=== PATIENT | male | born 1960 | race Caucasian/White ===

== ENCOUNTER 2018-01-21 15:34 | Emergency (ER) | payer SELFPAY ==
[~2018-01-21] VITALS: Ht 182.9 cm; Wt 70.0 kg
[~2018-01-21 15:34] MED LIST: CLON.1T PO; ZYRT10TA12 PO
[2018-01-21 15:56] VITALS: BP 195/111; PULSE 121; RESP 17; TEMP 97.5; O2SAT 96
[2018-01-21 16:07] VITALS: BP 171/100; PULSE 122; RESP 18; O2SAT 95
--- NOTE | 2018-01-21 16:12 | PD ---
HPI Chief Complaint: Seizure Time Seen by Provider: 15:55 Travel History International Travel<30 days: No Contact w/Intl Traveler<30days: No Traveled to known affect area: No History of Present Illness HPI 57-year-old male presents to the emergency department via EMS for evaluation after he had a seizure. 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 According to EMS, the customer thought it was strange because he was going 5 miles an hour to 35 mile per hour zone. When the customer came out of [facility], he was having a tonic-clonic seizure. When EMS arrived, he was postictal. The patient has no history of seizures. He reports no chronic medical problems and takes no prescribed medications. At this time, he is alert and oriented to person, place, time. He has no medical complaints. Denies any headache or visual changes. No chest pain or shortness breath. No abdominal pain. No nausea, vomiting, diarrhea. He states that he drinks 2 beers daily, last drink yesterday. He denies any history of alcohol withdrawal. Patient did have incontinence of his bowels as he has stool in his pants. He denies any tongue biting. He has no complaints at this time. Moderate severity. PFSH Past Medical History Medical History: Denies Significant Hx Diminished Hearing: No Tetanus Vaccination: > 5 Years ?: Not Past Surgical History Surgical History: No Previous Surgery Social History Alcohol Use: Yes Tobacco Use: Yes (1 PPD) Substance Use: No Allergies-Medications (Allergen,Severity, Reaction): Coded Allergies: No Known Allergies (Unverified , 09/20/15) Reported Meds & Prescriptions Reported Meds & Active Scripts Active Zyrtec (Cetirizine HCl) 10 Mg Tab 1 Tab PO DAILY [id number] (Clonidine HCl) 0.1 Mg/24 Hr Patch 1 Tab PO BID Review of Systems Except as stated in HPI: all other systems reviewed are Neg Physical Exam Narrative GENERAL: Well-nourished, well-developed male patient, afebrile. Patient alert and oriented to person, place, time. SKIN: Focused skin assessment warm/dry. No lacerations or abrasions. HEAD: Normocephalic. Atraumatic. ENT: Mucosa pink and moist. No erythema or exudates. No uvular edema. No uvular , palatal, or tonsillar deviation. Airway patent. Nasal turbinates appear normal without nasal blood, purulent drainage or septal hematoma. Bilateral tympanic membranes are clear without erythema or perforation. EYES: No scleral icterus. No injection or drainage. NECK: Supple, trachea midline. No JVD or lymphadenopathy. CARDIOVASCULAR: Regular rate and rhythm without murmurs, gallops, or rubs. Bilateral radial and pedal pulses 2+. RESPIRATORY: Breath sounds equal bilaterally. No accessory muscle use. Lungs sounds are clear to auscultation. GASTROINTESTINAL: Abdomen soft, non-tender, nondistended. MUSCULOSKELETAL: No cyanosis, or edema. BACK: Nontender without obvious deformity. No CVA tenderness. NEUROLOGICAL: Awake and alert. Cranial nerves II through XII intact. Motor and sensory grossly within normal limits. Five out of 5 muscle strength in all muscle groups. Normal speech. Finger to nose is normal bilaterally. Heel-to- quinones is normal bilaterally Data Data Last Documented VS Vital Signs Date Time Temp Pulse Resp B/P (MAP) Pulse Ox O2 Delivery O2 Flow Rate FiO2 01/21/18 18:48 01/21/18 16:23 116 24 95 Room Air 01/21/18 15:56 97.5 Orders Orders Complete Blood Count With Diff (01/21/18 16:03) Alcohol (Ethanol) (01/21/18 16:03) Drug Screen, Random Urine (01/21/18 16:03) Electrocardiogram (01/21/18 ) Ct Brain W/O Iv Contrast(Rout) (01/21/18 ) Blood Glucose (01/21/18 16:03) Ecg Monitoring (01/21/18 16:03) Iv Access Insert/Monitor (01/21/18 16:03) Oximetry (01/21/18 16:03) Comprehensive Metabolic Panel (01/21/18 16:03) Sodium Chloride 0.9% Flush (Ns Flush) (01/21/18 16:15) Urinalysis - C+S If Indicated (01/21/18 16:03) Magnesium (Mg) (01/21/18 16:03) Sodium Chlor 0.9% 1000 Ml Inj (Ns 1000 M (01/21/18 16:15) Lorazepam (Ativan) (01/21/18 16:15) Labs Laboratory Tests Test 01/21/18 16:00 White Blood Count 7.6 TH/MM3 Red Blood Count 5.00 MIL/MM3 Hemoglobin 17.1 GM/DL Hematocrit 49.3 % Mean Corpuscular Volume 98.8 FL Mean Corpuscular Hemoglobin 34.2 PG Mean Corpuscular Hemoglobin Concent 34.7 % Red Cell Distribution Width 13.5 % Platelet Count 264 TH/MM3 Mean Platelet Volume 6.6 FL Neutrophils (%) (Auto) 67.0 % Lymphocytes (%) (Auto) 24.4 % Monocytes (%) (Auto) 7.2 % Eosinophils (%) (Auto) 0.8 % Basophils (%) (Auto) 0.6 % Neutrophils # (Auto) 5.1 TH/MM3 Lymphocytes # (Auto) 1.8 TH/MM3 Monocytes # (Auto) 0.5 TH/MM3 Eosinophils # (Auto) 0.1 TH/MM3 Basophils # (Auto) 0.0 TH/MM3 CBC Comment DIFF FINAL Differential Comment Urine Color YELLOW Urine Turbidity CLEAR Urine pH 6.5 Urine Specific [place] 1.026 Urine Protein 100 mg/dL Urine Glucose (UA) 1000 mg/dL Urine Ketones 10 mg/dL Urine Occult Blood NEG Urine Nitrite NEG Urine Bilirubin NEG Urine Urobilinogen LESS THAN 2.0 MG/DL Urine Leukocyte Esterase NEG Urine WBC 1 /hpf Urine Mucus FEW /lpf Microscopic Urinalysis Comment CULT NOT INDICATED Blood Urea Nitrogen 9 MG/DL Creatinine 1.24 MG/DL Random Glucose 213 MG/DL Total Protein 8.0 GM/DL Albumin 3.6 GM/DL Calcium Level 8.7 MG/DL Magnesium Level 1.8 MG/DL Alkaline Phosphatase 48 U/L Aspartate Amino Transf (AST/SGOT) 29 U/L Alanine Aminotransferase (ALT/SGPT) 18 U/L Total Bilirubin 0.7 MG/DL Sodium Level 139 MEQ/L Potassium Level 3.6 MEQ/L Chloride Level 104 MEQ/L Carbon Dioxide Level 20.9 MEQ/L Anion Gap 14 MEQ/L Estimat Glomerular Filtration Rate 60 ML/MIN Urine Opiates Screen NEG Urine Barbiturates Screen NEG Urine Amphetamines Screen NEG Urine Benzodiazepines Screen NEG Urine Cocaine Screen NEG Urine Cannabinoids Screen POS Ethyl Alcohol Level LESS THAN 3 MG/DL MDM Medical Decision Making Medical Screen Exam Complete: Yes Emergency Medical Condition: Yes Medical Record Reviewed: Yes Differential Diagnosis Electrolyte abnormality versus intracranial abnormality versus alcohol withdrawal versus new onset seizure disorder Narrative Course 57-year-old male presents to the emergency department after having a seizure without history. EKG, CBC, CMP, magnesium, UA, urine drug screen, alcohol level are ordered and pending. CT of the brain is ordered and pending. Patient is given normal saline 1 L IV bolus, Ativan 1 mg by mouth. EKG shows sinus tachycardia, heart rate 107, no acute ST changes. CBC shows no acute abnormality. CMP shows hyperglycemia at 213. Magnesium is 1.8. UA is negative for acute infection. UDS is positive for cannabinoids. Alcohol level is less than 3. CT of the brain shows no acute disease. Patient declines admission. He is instructed to not drive and follow-up with neurology. He is leaving AMA. He is aware of the risks of leaving AMA AMA: The risks of leaving against medical advice without further evaluation treatment were discussed with the patient. These risks include cardiac dysfunction, cardiac dysrhythmia, possible heart attack, possible stroke or . The patient indicated understanding of these risks and appeared to have the capacity to make this decision. Diagnosis Primary Impression: Left against medical advice Referrals: Neurologist call for appointment Patient Instructions: General Instructions, Generalized Tonic Clonic Seizures ( ED) Additional Instructions: No driving until neurology clears you. Follow up with neurologist. Return to the emergency department for any acute, worsening of symptoms. Med/Other Pt SpecificInfo: No Change to Meds Disposition: 07 AGAINST MEDICAL ADVICE Diana Darden Jan 21, 2018 16:12
[2018-01-21] MEDS ORDERED: SODIUM CHLORIDE 0.9% FLUSH 10 ML FLUSH IVF PRN (16:15)
[2018-01-21] MEDS ORDERED: SODIUM CHLOR 0.9% 1000 ML INJ 1,000 ML IV ONE (16:15)
[2018-01-21] MEDS ORDERED: LORazepam 1 MG TAB PO ONE (16:15)
[2018-01-21 16:23] VITALS: BP 169/90; PULSE 116; RESP 24; O2SAT 95
[2018-01-21 16:23] LABS: AUTOMATED NEUTROPHIL # 5.1 TH/MM3 (1.8-7.7); BASOPHIL % 0.6 % (0.0-2.0); EOSINOPHIL # 0.1 TH/MM3 (0-0.4); EOSINOPHIL % 0.8 % (0.0-4.0); HEMATOCRIT 49.3 % (39.0-51.0); HEMOGLOBIN 17.1 GM/DL (13.0-17.0); LYMPH % 24.4 % (9.0-44.0); LYMPHOCYTE # 1.8 TH/MM3 (1.0-4.8); MEAN CELL VOLUME 98.8 FL (80.0-100.0); MEAN CORPUSCULAR HEMOGLOBIN 34.2 PG (27.0-34.0); MEAN CORPUSCULAR HGB CONC 34.7 % (32.0-36.0); MEAN PLATELET VOLUME 6.6 FL (7.0-11.0); MONO % 7.2 % (0.0-8.0); MONOCYTE # 0.5 TH/MM3 (0-0.9); PLATELET COUNT 264 TH/MM3 (150-450); RED CELL DISTRIBUTION WIDTH 13.5 % (11.6-17.2); WHITE BLOOD COUNT 7.6 TH/MM3 (4.0-11.0)
[2018-01-21 16:44] LABS: ALBUMIN 3.6 GM/DL (3.4-5.0); AST (GOT) 29 U/L (15-37); BICARBONATE 20.9 MEQ/L (21.0-32.0); BLOOD UREA NITROGEN 9 MG/DL (7-18); CALCIUM 8.7 MG/DL (8.5-10.1); CHLORIDE 104 MEQ/L (98-107); CREATININE 1.24 MG/DL (0.60-1.30); GLOMERULAR FILTRATION RATE 60 ML/MIN (>89); GLUCOSE,RANDOM 213 MG/DL (74-106); MAGNESIUM 1.8 MG/DL (1.5-2.5); SODIUM (NA) 139 MEQ/L (136-145)
[2018-01-21 16:48] LABS: ALKALINE PHOSPHATASE 48 U/L (45-117); ALT (GPT) 18 U/L (12-78); TOTAL BILIRUBIN ADULT 0.7 MG/DL (0.2-1.0)
[2018-01-21 17:39] LABS: BILIRUBIN, URINE NEG (NEG); BLOOD, URINE NEG (NEG); GLUCOSE,URINE 1000 mg/dL (NEG); KETONE, URINE 10 mg/dL (NEG); MUCUS URINE FEW /lpf (OCC); NITRITE,URINE NEG (NEG); PH, URINE 6.5 (5.0-8.5); URINE COLOR YELLOW (YELLW/STRAW); URINE LEUKOCYTE ESTERASE NEG (NEG)
--- NOTE | 2018-01-21 17:49 | RADRPT ---
EXAM DATE/TIME: 01/21/2018 17:20 [facility] COMPARISON: CT BRAIN W/O CONTRAST, September 20, 2015, 16:44. INDICATIONS : Witnessed tonic clonic seizure. RADIATION DOSE: 56.35 CTDIvol (mGy) MEDICAL HISTORY : None SURGICAL HISTORY : None. ENCOUNTER: Initial ACUITY: 1 day PAIN SCALE: 0/10 LOCATION: cranial TECHNIQUE: Multiple contiguous axial images were obtained of the head. Using automated exposure control and adj ustment of the mA and/or kV according to patient size, radiation dose was kept as low as reasonably a chievable to obtain optimal diagnostic quality images. DICOM format image data is available electro nically for review and comparison. FINDINGS: CEREBRUM: The ventricles are normal for age. No evidence of midline shift, mass lesion, hemorrhage or acute in farction. No extra-axial fluid collections are seen. POSTERIOR FOSSA: The cerebellum and brainstem are intact. The 4th ventricle is midline. The cerebellopontine angle i s unremarkable. EXTRACRANIAL: The visualized portion of the orbits is intact. SKULL: The calvaria is intact. No evidence of skull fracture. CONCLUSION: No acute disease. Sushant Elkins MD on January 21, 2018 at 17:41 Board Certified Radiologist. This report was verified electronically.
--- NOTE | 2018-01-21 18:48 | PD ---
Physical Exam Narrative GENERAL: 57-year-old male in no apparent distress SKIN: Focused skin assessment warm/dry. HEAD: Atraumatic. Normocephalic. EYES: Pupils equal and round. No scleral icterus. No injection or drainage. ENT: No nasal bleeding or discharge. Mucous membranes pink and moist. NECK: Trachea midline. No JVD. CARDIOVASCULAR: Regular rate and rhythm. RESPIRATORY: No accessory muscle use. No increased effort MUSCULOSKELETAL: No obvious deformities. No clubbing. No cyanosis. NEUROLOGICAL: Awake and alert. No obvious cranial nerve deficits. Motor grossly within normal limits. Normal speech. PSYCHIATRIC: Appropriate mood and affect; insight and judgment normal. Data Data Last Documented VS Vital Signs Date Time Temp Pulse Resp B/P (MAP) Pulse Ox O2 Delivery O2 Flow Rate FiO2 01/21/18 16:23 116 24 169/90 (116) 95 Room Air 01/21/18 15:56 97.5 Orders Orders Complete Blood Count With Diff (01/21/18 16:03) Alcohol (Ethanol) (01/21/18 16:03) Drug Screen, Random Urine (01/21/18 16:03) Electrocardiogram (01/21/18 ) Ct Brain W/O Iv Contrast(Rout) (01/21/18 ) Blood Glucose (01/21/18 16:03) Ecg Monitoring (01/21/18 16:03) Iv Access Insert/Monitor (01/21/18 16:03) Oximetry (01/21/18 16:03) Comprehensive Metabolic Panel (01/21/18 16:03) Sodium Chloride 0.9% Flush (Ns Flush) (01/21/18 16:15) Urinalysis - C+S If Indicated (01/21/18 16:03) Magnesium (Mg) (01/21/18 16:03) Sodium Chlor 0.9% 1000 Ml Inj (Ns 1000 M (01/21/18 16:15) Lorazepam (Ativan) (01/21/18 16:15) Labs Laboratory Tests Test 01/21/18 16:00 White Blood Count 7.6 TH/MM3 Red Blood Count 5.00 MIL/MM3 Hemoglobin 17.1 GM/DL Hematocrit 49.3 % Mean Corpuscular Volume 98.8 FL Mean Corpuscular Hemoglobin 34.2 PG Mean Corpuscular Hemoglobin Concent 34.7 % Red Cell Distribution Width 13.5 % Platelet Count 264 TH/MM3 Mean Platelet Volume 6.6 FL Neutrophils (%) (Auto) 67.0 % Lymphocytes (%) (Auto) 24.4 % Monocytes (%) (Auto) 7.2 % Eosinophils (%) (Auto) 0.8 % Basophils (%) (Auto) 0.6 % Neutrophils # (Auto) 5.1 TH/MM3 Lymphocytes # (Auto) 1.8 TH/MM3 Monocytes # (Auto) 0.5 TH/MM3 Eosinophils # (Auto) 0.1 TH/MM3 Basophils # (Auto) 0.0 TH/MM3 CBC Comment DIFF FINAL Differential Comment Urine Color YELLOW Urine Turbidity CLEAR Urine pH 6.5 Urine Specific [place] 1.026 Urine Protein 100 mg/dL Urine Glucose (UA) 1000 mg/dL Urine Ketones 10 mg/dL Urine Occult Blood NEG Urine Nitrite NEG Urine Bilirubin NEG Urine Urobilinogen LESS THAN 2.0 MG/DL Urine Leukocyte Esterase NEG Urine WBC 1 /hpf Urine Mucus FEW /lpf Microscopic Urinalysis Comment CULT NOT INDICATED Blood Urea Nitrogen 9 MG/DL Creatinine 1.24 MG/DL Random Glucose 213 MG/DL Total Protein 8.0 GM/DL Albumin 3.6 GM/DL Calcium Level 8.7 MG/DL Magnesium Level 1.8 MG/DL Alkaline Phosphatase 48 U/L Aspartate Amino Transf (AST/SGOT) 29 U/L Alanine Aminotransferase (ALT/SGPT) 18 U/L Total Bilirubin 0.7 MG/DL Sodium Level 139 MEQ/L Potassium Level 3.6 MEQ/L Chloride Level 104 MEQ/L Carbon Dioxide Level 20.9 MEQ/L Anion Gap 14 MEQ/L Estimat Glomerular Filtration Rate 60 ML/MIN Urine Opiates Screen NEG Urine Barbiturates Screen NEG Urine Amphetamines Screen NEG Urine Benzodiazepines Screen NEG Urine Cocaine Screen NEG Urine Cannabinoids Screen POS Ethyl Alcohol Level LESS THAN 3 MG/DL MDM Supervised Visit with KAIN: Yes Interpretation(s) CBC & BMP Diagram 01/21/18 16:00 Total Protein 8.0, Albumin 3.6, Calcium Level 8.7, Magnesium Level 1.8, Alkaline Phosphatase 48, Aspartate Amino Transf (AST/SGOT) 29, Alanine Aminotransferase (ALT/SGPT) 18, Total Bilirubin 0.7 Last [address] 01/21/18 0000 Signed Impressions: Service Date/Time: , January 21, 2018 17:20 - CONCLUSION: No acute disease. Sushant Elkins MD Narrative Course I, Dr. boyer, have reviewed the advance practice practitioner's documentation and am in agreement, met with the patient face to face, made the diagnosis, and the medical decision making was done by me. *My assessment and Findings: 57-year-old male presents after witnessed tonic- clonic seizure. He drinks alcohol heavily every night and last drank last night. Initial workup without emergent process. Advise patient he stay in the hospital overnight for further workup of new onset seizure but he states he has to go home and take care of his dog. He states no one else can watch the dog and after offering other alternatives these were all declined. AMA: The risks of leaving against medical advice without further evaluation treatment were discussed with the patient. These risks include cardiac dysfunction, cardiac dysrhythmia, possible heart attack, possible stroke or . The patient indicated understanding of these risks and appeared to have the capacity to make this decision. Diagnosis Primary Impression: Seizure Referrals: Neurologist call for appointment Patient Instructions: General Instructions, Generalized Tonic Clonic Seizures ( ED) Departure Forms: Tests/Procedures Additional Instruction: No driving until neurology clears you. Follow up with neurologist. Return to the emergency department for any acute, worsening of symptoms. Med/Other Pt SpecificInfo: No Change to Meds Disposition: 07 AGAINST MEDICAL ADVICE Condition: Stable Keesha Boyer MD Jan 21, 2018 18:48
--- NOTE | 2018-01-23 13:13 | EKG ---
Date Performed: 01/21/2018 Time Performed: 16:54:06 PTAGE: 57 years EKG: SINUS TACHYCARDIA ABNORMAL RHYTHM ECG Compared to PREVIOUS TRACING , ST-T abnormality has resolved. PREVIOUS TRACIN09/20/2015 16.19 DOCTOR: Trae Iraheta Interpretating Date/Time 01/23/2018 13:11:52
== END 2018-01-21 18:57 | disposition left against medical advice (07) ==
LOC: NEPC 15:34
DX: R56.9 Unspecified convulsions (principal); F17.200 Nicotine dependence, unspecified, uncomplicated
CPT/HCPCS: 70450; 80053; 80307; 81001; 83735; 85025; 93005; 96360; 96361; 99285; J7030